=== PATIENT | male | born 1965 | race Hispanic/Latino ===

== ENCOUNTER 2019-05-22 20:34 | Emergency (ER) | payer BC, OTHER ==
[2019-05-22] MEDS ORDERED: LIDOCAINE 5% TOPICAL PATCH TP ONE (21:03)
[2019-05-22] MEDS ORDERED: CYCLOBENZAPRINE HCL 10 MG TABLET ONE (21:04)
[2019-05-22] MEDS ORDERED: KETOROLAC TROMETHAMINE 30MG/ML ONE (22:06)
== END 2019-05-22 23:15 | disposition home or self-care (01) ==
LOC: EDH 20:34
DX: M54.31 Sciatica, right side (principal); Z90.49 Acquired absence of other specified parts of digestive tract
CPT/HCPCS: 96372; 99284; J1885